=== PATIENT | female | born 1990 | race Caucasian/White ===

== ENCOUNTER 2024-11-12 04:33 | Emergency (ER) | payer BC ==
[~2024-11-12] VITALS: Ht 157.5 cm; Wt 70.4 kg
[2024-11-12 05:04] LABS: VENOUS BASE EXCESS -2.8 (-2.0-2.0); VENOUS HCO3 21.4 MMOL/L (23.0-27.0); VENOUS O2 SATURATION 79.3 % (60.0-80.0); VENOUS PARTIAL PRESSURE CO2 35.3 mmHg (38.0-50.0); VENOUS PARTIAL PRESSURE O2 43.1 mmHg (30.0-50.0); VENOUS STANDARD HCO3 21.8 MMOL/L; VENOUS TOTAL CO2 22.5 MMOL/L (24.0-28.0)
[2024-11-12] MEDS: ACETAMINOPHEN 500 MG TAB PO ONE (05:15)
[2024-11-12 05:21] LABS: BASO % 0.3 % (0.0-1.0); EOS # 0.1 10^3/uL (0.0-0.5); HEMATOCRIT 37.1 % (36.0-47.0); HEMOGLOBIN 12.4 g/dl (12.0-15.5); LYMPH # 6.6 10^3/uL (1.5-5.0); LYMPH % 57.2 % (24.0-44.0); MEAN CORPUSCULAR HEMOGLOBIN 31.8 pg (27.0-33.0); MEAN CORPUSCULAR HGB CONC 33.4 g/dl (32.0-36.5); MEAN CORPUSCULAR VOLUME 95.1 fl (80.0-96.0); MONO # 0.7 10^3/uL (0.0-0.8); MONO % 5.8 % (2.0-8.0); NEUTROPHILS # 4.1 10^3/uL (1.5-8.5); NEUTROPHILS % 35.3 % (36.0-66.0); PLATELET COUNT, AUTOMATED 294 10^3/uL (150-450); WHITE BLOOD COUNT 11.5 10^3/uL (4.0-10.0)
[2024-11-12 05:35] LABS: ALBUMIN 3.3 G/DL (3.2-5.2); ALKALINE PHOSPHATASE 53 U/L (35-104); ALT/SGPT 20 U/L (7.0-40); AST/SGOT 14 U/L (<34); BILIRUBIN,TOTAL 0.3 MG/DL (0.3-1.2); BLOOD UREA NITROGEN 14 MG/DL (9-23); CALCIUM LEVEL 8.7 MG/DL (8.5-10.1); CARBON DIOXIDE LEVEL 24 MMOL/L (20-31); CHLORIDE LEVEL 106 MMOL/L (98-107); CPK CREATINE PHOSPHOKINASE 54 U/L (34-145); CREATININE FOR GFR 0.74 MG/DL (0.55-1.30); D-DIMER QUANT 0.33 ug/mL (<0.5); GLOMERULAR FILTRATION RATE > 60.0 (>60); GLUCOSE, FASTING 116 MG/DL (60-100); INR 1.01; MAGNESIUM LEVEL 1.8 MG/DL (1.8-2.4); PARTIAL THROMBOPLASTIN TIME 28.2 SECONDS (24.8-34.2); POTASSIUM SERUM 3.7 MMOL/L (3.5-5.1); PROTHROMBIN TIME 13.6 SECONDS (12.5-14.5); SODIUM LEVEL 140 MMOL/L (136-145); TOTAL PROTEIN 6.3 G/DL (5.7-8.2)
[2024-11-12 05:36] LABS: LIPASE 36 U/L (12-53)
[2024-11-12] MEDS ORDERED: ISOVUE-370 76% 100ML VIAL As Ordered ONE (06:02)
[2024-11-12 06:06] LABS: HCG, SERUM QUANTITATIVE < 2.6 MIU/ML (<4.2)
[2024-11-12] MEDS: FAMOTIDINE IV BAG 20 MG in IV 1 EA IV ONE (07:18)
[2024-11-12] MEDS ORDERED: PROZ20CA11 PO (08:00)
[2024-11-12] MEDS ORDERED: OMEP-173 PO (08:00)
[2024-11-12] MEDS ORDERED: CARA1TAB6 PO (08:01)
[2024-11-12 08:30] VITALS: BP 103/65; TEMP 97.5; O2SAT 97
== END 2024-11-12 08:37 | disposition home or self-care (01) ==
LOC: M ED 04:33 → EDBD 04:33 → M ED 08:37
DX: R07.9 Chest pain, unspecified (principal); K21.9 Gastro-esophageal reflux disease without esophagitis; Z79.899 Other long term (current) drug therapy
CPT/HCPCS: 71045; 71275; 74175; 80053; 82550; 82803; 83690; 83735; 84484; 84702; 85025; 85379; 85610; 85730; 93005; 96365; 99284; Q9967; S0028

== ENCOUNTER → 2025-03-09 | Outpatient (REF) | payer BC ==
[~2025-03-09] MED LIST: CARA1TAB6 PO; OMEP-173 PO; PROZ20CA11 PO
[2025-03-09 18:06] LABS: BASO % 0.4 % (0.0-1.0); EOS % 0.4 % (0.0-3.0); HEMATOCRIT 41.5 % (36.0-47.0); HEMOGLOBIN 13.7 g/dl (12.0-15.5); LYMPH # 3.6 10^3/uL (1.5-5.0); LYMPH % 34.4 % (24.0-44.0); MEAN CORPUSCULAR HEMOGLOBIN 32.2 pg (27.0-33.0); MEAN CORPUSCULAR VOLUME 97.4 fl (80.0-96.0); MONO # 0.8 10^3/uL (0.0-0.8); MONO % 7.4 % (2.0-8.0); NEUTROPHILS % 57.1 % (36.0-66.0); PLATELET COUNT, AUTOMATED 312 10^3/uL (150-450); RED BLOOD COUNT 4.26 10^6/uL (4.00-5.40); WHITE BLOOD COUNT 10.6 10^3/uL (4.0-10.0)
[2025-03-09 18:33] LABS: ALBUMIN 3.8 G/DL (3.2-5.2); ALKALINE PHOSPHATASE 67 U/L (35-104); ALT/SGPT 21 U/L (7.0-40); AST/SGOT 15 U/L (<34); BILIRUBIN,TOTAL 0.3 MG/DL (0.3-1.2); BLOOD UREA NITROGEN 10 MG/DL (9-23); CALCIUM LEVEL 9.5 MG/DL (8.5-10.1); CARBON DIOXIDE LEVEL 28 MMOL/L (20-31); CHLORIDE LEVEL 102 MMOL/L (98-107); CHOLESTEROL LEVEL 261 MG/DL (<200); CHOLESTEROL RISK RATIO 4.53 (<5); CREATININE FOR GFR 0.76 MG/DL (0.55-1.30); FERRITIN 10.8 NG/ML (7.3-270.7); GLOMERULAR FILTRATION RATE > 90.0 (>60); GLUCOSE, FASTING 96 MG/DL (60-100); HDL CHOLESTEROL 57.6 MG/DL (>40); IRON (FE) 188 UG/DL (50-170); LDL CHOLESTEROL 152.2 MG/DL (<100); NON-HDL-C 203.4 MG/DL; SODIUM LEVEL 140 MMOL/L (136-145); TOTAL PROTEIN 7.3 G/DL (5.7-8.2); TRIGLYCERIDES LEVEL 256 MG/DL (<150)
[2025-03-09 18:34] LABS: TOTAL IRON BINDING CAPACITY 400 UG/DL (250-425)
[2025-03-09 19:06] LABS: HEPATITIS C VIRUS ABY INDEX 0.14 INDEX (<0.8)
== END ==
LOC: M LABDRWAD 17:21
PROVIDERS: ATTEND Student in an Organized Health Care Education/Training Program
DX: E61.1 Iron deficiency (principal); Z11.59 Encounter for screening for other viral diseases; E78.2 Mixed hyperlipidemia; G47.33 Obstructive sleep apnea (adult) (pediatric)